=== PATIENT | male | born 1970 | race Two or more races ===

== ENCOUNTER 2020-11-07 00:38 | Emergency (ER) | payer OTHER, SELFPAY ==
[2020-11-07 01:12] VITALS: BP 154/100; PULSE 73; RESP 20; TEMP 36.1; O2SAT 99; BMI 33.5
[2020-11-07 04:17] VITALS: BP 133/82; PULSE 66; RESP 12; O2SAT 99
--- NOTE | 2020-11-07 05:05 | ED.SKABFB ---
HPI - Skin/Abscess/Foreign Bdy General Chief complaint: Skin/Abscess/Foreign Body Stated complaint: thinks he has fleas? Time Seen by Provider: 11/07/20 00:43 Source: patient Mode of arrival: ambulatory History of Present Illness HPI narrative: 50-year-old male presents with scabs to body, face, anterior chest as well as bilateral lower extremities that has resulted in some mild swelling and itching for 3 days. He states he thinks he has fleas, but describes that may were noted to be small black things. He states he has gotten rid of his mattress and wash his clothing. Related Data Allergies Allergy/AdvReac Type Severity Reaction Status Date / Time No Known Allergies Allergy Unverified 11/11/19 15:38 Review of Systems Review of Systems: Pertinent positives and negatives as stated in HPI 10 point review of systems otherwise negative. PMFSH Past Medical History Source: nursing notes reviewed Medical History No known health problems No known health problems Social History Social History Advance Directives: No Physical Exam Vital Signs: Vital Signs: Last Vital Signs Temp 96.9 F 11/07/20 01:12 Pulse 66 11/07/20 04:17 Resp 12 11/07/20 04:17 BP 133/82 11/07/20 04:17 Pulse Ox 99 11/07/20 04:17 Body Mass Index 33.5 VITAL SIGNS: Reviewed. GENERAL: Well developed, well nourished, in no acute distress. HEAD: Normocephalic/atraumatic EYES: PERRLA, EOMI LUNGS: Normal breath sounds. SpO2<99> CARDIOVASCULAR: Regular rate and rhythm without noted murmurs ABDOMEN: Soft, non-tender, non-distended with bowel sounds. SKIN: Inspection of the skin reveals various raised erythematous site consistent with bed bug distribution gross anterior chest upper bilateral extremities some areas on the face as well as bilateral lower extremities NEUROLOGIC: Alert and oriented x 4. Course Course Course Narrative: 50-year-old male with history and clinical presentation consistent with bedbug infestation. He received 25 mg of Benadryl here in the emergency room and will be discharged home in stable condition with instructions on how to get rid of bedbugs as well as instructions on the use of Benadryl for itchiness. Discharge Plan Discharge Clinical Impression: Bedbug bite Patient Disposition: Home, Self-Care Instructions: Insect Bite or Sting (ED) Additional Instructions: 1. Recommend using [id number] Benadryl for symptom relief of itchiness 2. Cleanse all bedding with hot water into a need to contact a past control company for eradication. Return to the ER for acute worsening of symptoms. Referrals: Physician,None [Primary Care Provider] - 2 days
[2020-11-07] MEDS: diphenhydrAMINE HCL 25 MG TABLET PO (05:53)
== END 2020-11-07 05:55 | disposition home or self-care (01) ==
PROVIDERS: Emergency Provider Student in an Organized Health Care Education/Training Program
DX: L29.9 Pruritus, unspecified (principal); S00.86XA Insect bite (nonvenomous) of other part of head, initial encounter; S20.363A Insect bite (nonvenomous) of bilateral front wall of thorax, initial encounter; S80.862A Insect bite (nonvenomous), left lower leg, initial encounter; S80.861A Insect bite (nonvenomous), right lower leg, initial encounter; S30.861A Insect bite (nonvenomous) of abdominal wall, initial encounter; W57.XXXA Bitten or stung by nonvenomous insect and other nonvenomous arthropods, initial encounter; Y93.9 Activity, unspecified; Y92.89 Other specified places as the place of occurrence of the external cause; Y99.9 Unspecified external cause status
CPT/HCPCS: 99283; Q0163

== ENCOUNTER 2021-04-03 10:40 | Emergency (ER) | payer OTHER, SELFPAY ==
[2021-04-03 10:42] VITALS: BP 144/96; PULSE 83; RESP 16; TEMP 36.6; O2SAT 100; BMI 32.5
--- NOTE | 2021-04-03 13:00 | ED.SKABFB ---
HPI - Skin/Abscess/Foreign Bdy General Chief complaint: Skin/Abscess/Foreign Body Stated complaint: bug bite on arm Time Seen by Provider: 04/03/21 12:57 Source: patient Mode of arrival: ambulatory Limitations: no limitations History of Present Illness HPI narrative: 50-year-old male who denies any past medical history presenting to the ED with complaints of an abscess to his right upper arm that is now draining after he tried to drain the pus himself last night that he noticed approximately 3 days ago this started. He reports that he may have been bitten by above although he is uncertain. He reports that he is not up-to-date on his tetanus. He denies any fevers, chills, worsening pain, thoughts of foreign bodies, recent falls or injuries, chest pain or shortness of breath, history of MRSA or any other symptoms complaints or concerns at this time. MD complaint: abscess/boil Onset (ago): day(s) (3) Tetanus up to date: unsure Location: RUE Severity: severe Severity scale (1-10): >10 Quality: aching Pain Consistency: constant Relieving factors: none Exacerbating factors: palpation Context: other (Patient reports possible bug bite although he is uncertain) Associated symptoms: denies other symptoms Treatments prior to arrival: attempted to drain pus at home Related Data Previous Rx's Medication Instructions Recorded diphenhydramine HCl 25 mg tablet 50 mg PO TID PRN #10 tab 11/07/20 (Benadryl Allergy) permethrin 5 % topical cream 1 appl TOPICAL Q14D #60 g 11/07/20 cephalexin 500 mg capsule 500 mg PO QID 10 Days #40 cap 04/03/21 doxycycline monohydrate 100 mg 100 mg PO BID 10 Days #20 tab 04/03/21 tablet ibuprofen 800 mg tablet 800 mg PO Q8H PRN #14 tab 04/03/21 oxycodone 5 mg tablet 5 mg PO Q6H PRN #14 tab 04/03/21 Allergies Allergy/AdvReac Type Severity Reaction Status Date / Time No Known Allergies Allergy Verified 04/03/21 10:42 Review of Systems Review of Systems: Constitutional : Denies history of same, Denies any other sites involved, Denies IV drug use, Denies history of MRSA, Denies swollen glands, Denies injury, Denies Fever, Denies Chills, + Sig Pain, Denies Systemic symptoms Cardiovascular : No Chest Pain, No SOB Respiratory : No Dyspnea Gastrointestinal : No abdominal pain Musculoskeletal : No Joint Swelling Skin : + abscess with surrounding erythema, No skin laceration, No Foreign bodies, No spreading rash, Denies bites, Denies discharge, Neuro : No Weakness, No Numbness/tingling Psych : No SI/HI/thoughts of self injury Yes all other systems are reviewed and are negative [facility] Past Medical History Attestation statement: The following information was validated with the patient. Medical History No known health problems No known health problems Social History Social History Advance Directives: No Advance Directives Information Provided: No Physical Exam Vital Signs: Vital Signs: Last Vital Signs Temp 97.8 F 04/03/21 10:42 Pulse 83 04/03/21 10:42 Resp 16 04/03/21 10:42 BP 144/96 H 04/03/21 10:42 Pulse Ox 100 04/03/21 10:42 BMI result Body Mass Index 32.5 vital signs have been reviewed as normal and appeared to be correct. Blood pressure 144/96 Heart rate normal. Respiration rate normal. Temperature normal. Oxygen saturation normal. Appearance: Alert. Oriented X3. No acute distress. Head: Normal external exam. Normocephalic. Atraumatic. Eyes: PERRLA. EOMI. Conjunctiva and sclera normal. Eyelids normal. ENT: Pharynx normal. Uvula midline. Moist mucous membranes. Neck: Normal inspection. Neck supple. FROM. CVS: Normal heart rate and rhythm. Respiratory: No respiratory distress. Painless inspiration. Skin: Skin warm and dry. Normal skin color. Normal skin turgor. To the left upper arm at the posterior aspect right above the elbow patient has a moderate possible 4 x 4 cm fluctuant abscess that is currently draining with surrounding erythema. No streaking/foreign bodies noted. No additional rashes/lesions/lacerations noted. Extremities: Patient has full range of motion of the right shoulder/elbow no obvious ligamentous or tendon injury or signs of septic joint. Otherwise all other extremities exhibit normal range of motion and nontender. Neuro: Oriented X 3. No motor deficit. No sensory deficit. Reflexes normal. Normal steady gait. No focal neuro deficits noted. Vascular: + radial pulses/+ 2 distal pedal pulses/+2 dorsalis pedis b/l. Normal cap refill. No cyanosis noted to upper extremity nails and lower extremity toes nails. Course Course Course Narrative: IMP/Plan: abscess. No systemic toxicity, and pt looks well. + surrounding cellulitis. Not c/w nec fasc/ myositis/ DVT/ osteomyelitis. patient now status post I&D of abscess and patient tolerated procedure well. No complications. No labs or imaging indicated at this time. Will DC home antibiotics and symptomatic treatment instructions return if any new or worsening symptoms to follow up with primary care provider. Patient understands agrees this plan. MDM - Skin/Abscess/Foreign Bdy Medical Records Attestation: I reviewed the patient's medical records. Procedures Abscess I/D Site: upper extremity Side (if applicable): right Local Anesthetic: lidocaine 2% Amount of anesthesia used (mL): 5 Technique: needle aspiration and incised with blade Amount of fluid expressed (mL): 15 Sent for culture/gram staining?: No Irrigation: Yes Packing used?: none Complications: other (No complications) Discharge Plan Discharge Clinical Impression: Abscess of skin or subcutaneous tissue, Cellulitis Patient Disposition: Home, Self-Care Instructions: Cellulitis (DC), Abscess Incision and Drainage (DC), Warm Compress or Soak (ED) Prescriptions: New doxycycline monohydrate 100 mg tablet 100 mg PO BID 10 Days Qty: 20 0RF cephalexin 500 mg capsule 500 mg PO QID 10 Days Qty: 40 0RF ibuprofen 800 mg tablet 800 mg PO Q8H PRN (Reason: pain) Qty: 14 0RF oxycodone 5 mg tablet 5 mg PO Q6H PRN (Reason: pain) Qty: 14 0RF No Action permethrin 5 % cream 1 appl topical Q14D Qty: 60 2RF Rx Instructions: apply second treatment 14 days after first treatment if live lice remain diphenhydramine HCl [Benadryl Allergy] 25 mg tablet 50 mg PO TID PRN (Reason: itching) Qty: 10 0RF Referrals: Physician,None [Primary Care Provider] - 2 days (your pcp) Print Language: Swazi
[2021-04-03] MEDS: Diphth,Pertus(ACell),Tet Adult 0.5 ML SYRINGE IM (13:10)
[2021-04-03] MEDS: Lidocaine HCl 2 % MPF 5 ML VIAL SUBCUT (13:10)
[2021-04-03] MEDS: oxyCODONE HCl Immed Release 5 MG TABLET PO (13:10)
== END 2021-04-03 14:09 | disposition home or self-care (01) ==
PROVIDERS: Emergency Provider Emergency Medicine
DX: L02.413 Cutaneous abscess of right upper limb (principal); L03.113 Cellulitis of right upper limb; S40.811A Abrasion of right upper arm, initial encounter; X58.XXXA Exposure to other specified factors, initial encounter; Y93.9 Activity, unspecified; Y92.9 Unspecified place or not applicable; Y99.9 Unspecified external cause status; Z79.899 Other long term (current) drug therapy
CPT/HCPCS: 10060; 90471; 90715; 99284